=== PATIENT | female | born 1935 | race Caucasian/White ===

== ENCOUNTER 2018-01-05 08:12 | Emergency (ER) | payer OTHER, MEDICARE ==
[~2018-01-05] VITALS: Ht 162.6 cm; Wt 97.6 kg
[2018-01-05 09:08] LABS: HEMATOCRIT 40.1 % (36.0-46.0); HEMOGLOBIN 14.5 G/DL (11.9-15.5); MCH 32.4 PG (29.0-34.0); MCHC 36.2 G/DL (30.0-36.0); MCV 89.7 FL (83-99); PLATELET COUNT 171 K/uL (156-360); RBC DIS.WIDTH-CV 12.9 % (11.8-14.6); RBC DIS.WIDTH-SD 42.6 % (39-53); RED BLOOD COUNT 4.47 M/uL (3.80-5.20); WHITE BLOOD COUNT 4.2 K/uL (4.1-10.2)
[2018-01-05 09:16] LABS: ALBUMIN 3.8 g/dL (3.2-4.8); CHLORIDE 102 mEq/L (99-109); POTASSIUM 2.9 mEq/L (3.7-5.4); SODIUM 135 mEq/L (136-147)
[2018-01-05 09:19] LABS: GLUCOSE 135 mg/dL (70-99); TOTAL PROTEIN 7.1 g/dL (6.4-8.3)
[2018-01-05 09:21] LABS: TOTAL BILIRUBIN 0.6 mg/dL (0.0-1.0)
[2018-01-05 09:22] LABS: ALKALINE PHOSPHATASE 66 IU/L (3-129); CREATININE 0.9 mg/dL (0.6-1.3); GFR ESTIMATE (CALCULATED) > 59 mL/min/
[2018-01-05 09:23] LABS: UREA NITROGEN (BUN) 13 mg/dL (9-23)
[2018-01-05 09:24] LABS: AST (GOT) 32 IU/L (2-34)
[2018-01-05 09:25] LABS: ALT (GPT) 31 IU/L (3-49)
[2018-01-05 09:26] LABS: LIPASE 17 U/L (1.0-51.0)
[2018-01-05 09:28] LABS: TROP-I INTERPRETATION NEGATIVE; TROPONIN-I 0.02 ng/mL (0.0-0.30)
[2018-01-05 10:06] LABS: MAGNESIUM 1.8 mg/dL (1.3-2.7)
[2018-01-05 12:27] LABS: APPEARANCE CLEAR ((CLEAR)); COLOR COLORLESS ((YELLOW))
[2018-01-05 12:29] LABS: BILIRUBIN NEGATIVE; BLOOD NEGATIVE; GLUCOSE (STRIP) NEGATIVE; KETONES NEGATIVE; PH, URINE 6.5 (5-8); PROTEIN (STRIP) NEGATIVE; SPECIFIC GRAVITY 1.005 (1.000-1.030); UROBILINOGEN 0.2 MG/DL (0.2-1.0)
[2018-01-05 12:30] LABS: LEUKOCYTES MODERATE; NITRITE NEGATIVE
[2018-01-05 12:32] LABS: BACTERIA RARE /HPF; EPITHELIAL CELLS RARE /HPF; MUCUS NONE SEEN /LPF; RED BLOOD CELLS RARE /HPF (0-5); WHITE BLOOD CELLS 0-5 /HPF (0-5)
[2018-01-05] MEDS ORDERED: K-DUR20 MEQ PO (12:44)
[2018-01-05 13:28] VITALS: BP 121/68
== END 2018-01-05 13:40 | disposition home or self-care (01) ==
LOC: EME 08:12
PROVIDERS: Nurse Practitioner Family
DX: E87.6 Hypokalemia (principal); K52.9 Noninfective gastroenteritis and colitis, unspecified; B96.20 Unspecified Escherichia coli [E. coli] as the cause of diseases classified elsewhere; Z16.24 Resistance to multiple antibiotics; K57.30 Diverticulosis of large intestine without perforation or abscess without bleeding; K76.89 Other specified diseases of liver; N28.1 Cyst of kidney, acquired; I70.0 Atherosclerosis of aorta; M51.36 Other intervertebral disc degeneration, lumbar region; M47.896 Other spondylosis, lumbar region; R73.03 Prediabetes; I10 Essential (primary) hypertension; E03.9 Hypothyroidism, unspecified; E78.5 Hyperlipidemia, unspecified; Z90.49 Acquired absence of other specified parts of digestive tract
CPT/HCPCS: 74177; 80053; 81003; 83605; 83690; 83735; 84484; 85027; 87077; 87086; 87177; 87186; 87493; 87506; 93005; 99281; 99285; J2405; J3480; J7030

== ENCOUNTER 2018-01-12 02:17 | Emergency (ER) | payer OTHER, MEDICARE ==
[~2018-01-12] VITALS: Ht 162.6 cm; Wt 81.8 kg
[~2018-01-12 02:17] MED LIST: K-DUR20 MEQ PO
[2018-01-12 03:17] LABS: HEMATOCRIT 36.9 % (36.0-46.0); HEMOGLOBIN 13.4 G/DL (11.9-15.5); MCHC 36.3 G/DL (30.0-36.0); MCV 88.1 FL (83-99); RBC DIS.WIDTH-CV 12.5 % (11.8-14.6); RED BLOOD COUNT 4.19 M/uL (3.80-5.20); WHITE BLOOD COUNT 7.2 K/uL (4.1-10.2)
[2018-01-12 03:20] LABS: PLATELET COUNT 235 K/uL (156-360)
[2018-01-12 03:25] LABS: ALBUMIN 3.9 g/dL (3.2-4.8)
[2018-01-12 03:26] LABS: CHLORIDE 95 mEq/L (99-109); POTASSIUM 3.5 mEq/L (3.7-5.4)
[2018-01-12 03:28] LABS: GLUCOSE 122 mg/dL (70-99)
[2018-01-12 03:31] LABS: ALKALINE PHOSPHATASE 55 IU/L (3-129); SODIUM 130 mEq/L (136-147); TOTAL BILIRUBIN 1.2 mg/dL (0.0-1.0)
[2018-01-12 03:32] LABS: CREATININE 0.7 mg/dL (0.6-1.3); GFR ESTIMATE (CALCULATED) > 59 mL/min/
[2018-01-12 03:33] LABS: AST (GOT) 25 IU/L (2-34); UREA NITROGEN (BUN) 5 mg/dL (9-23)
[2018-01-12 03:34] LABS: APPEARANCE CLEAR ((CLEAR)); BILIRUBIN NEGATIVE; BLOOD NEGATIVE; COLOR COLORLESS ((YELLOW)); GLUCOSE (STRIP) NEGATIVE; KETONES NEGATIVE; LEUKOCYTES NEGATIVE; NITRITE NEGATIVE; PROTEIN (STRIP) NEGATIVE; SPECIFIC GRAVITY 1.002 (1.000-1.030); UCUL ADDED? NO; UROBILINOGEN 0.2 MG/DL (0.2-1.0)
[2018-01-12 03:35] LABS: ALT (GPT) 29 IU/L (3-49)
[2018-01-12 05:19] VITALS: BP 156/63
== END 2018-01-12 05:20 | disposition home or self-care (01) ==
LOC: EME 02:17
PROVIDERS: Physician Assistant
DX: R19.7 Diarrhea, unspecified (principal); R53.83 Other fatigue; F41.1 Generalized anxiety disorder; I10 Essential (primary) hypertension; E78.5 Hyperlipidemia, unspecified; R73.03 Prediabetes; Z90.49 Acquired absence of other specified parts of digestive tract
CPT/HCPCS: 80053; 81003; 85027; 87040; 87502; 99281; 99285; J7030